=== PATIENT | female | born 1975 | race Caucasian/White ===

== ENCOUNTER → 2019-11-03 14:10 | Outpatient (BNVA) | payer BC, OTHER, SELFPAY | PROVIDERS: Family Provider Urology; PCP Internal Medicine; Visit Provider Urology | DX: N30.20 Other chronic cystitis without hematuria (principal) | CPT/HCPCS: 81001 ==

== ENCOUNTER → 2020-07-27 08:33 | Outpatient (BNVA) | payer BC, OTHER, SELFPAY | PROVIDERS: Family Provider Urology; PCP Nurse Practitioner Family; Visit Provider Urology | DX: N30.20 Other chronic cystitis without hematuria (principal) | CPT/HCPCS: 81003 ==

== ENCOUNTER → 2021-01-25 08:35 | Outpatient (BNVA) | payer OTHER, SELFPAY | PROVIDERS: Family Provider Urology; PCP Nurse Practitioner Family; Visit Provider Urology | DX: N30.20 Other chronic cystitis without hematuria (principal) | CPT/HCPCS: 81003 ==

== ENCOUNTER 2021-05-09 09:25 | Emergency (ER) | payer OTHER, SELFPAY ==
[2021-05-09 09:41] VITALS: BP 141/83; PULSE 87; RESP 16; TEMP 36.8; O2SAT 99; BMI 22.4
--- NOTE | 2021-05-09 10:04 | XR_ITS ---
WS: [id number] Portable AP upright chest, 05/09/2021 Clinical Data: chest pain Comparison: None. Findings: No nodules, masses or effusions are seen. The heart is normal. The pulmonary vascularity is not increased. No pneumonia or pneumothorax is seen. XR/XR chest 1V portable [id number] Impression: Negative chest.
--- NOTE | 2021-05-09 10:05 | ECG_ITS ---
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 Measurements Intervals [place] Rate: 65 P: 71 SC: 132 QRS: 69 QRSD: 86 T: 41 QT: 380 QTc: 397 Interpretive Statements SINUS RHYTHM No previous ECG available for comparison Electronically Signed On 05-11-2021 18:20:50 CDT by Shahrzad Frey M.D. [id number]
--- NOTE | 2021-05-09 10:14 | W.ED.GENADLT ---
HPI - General Adult General: Chief complaint: General Medical Stated complaint: indigestion pain, HTN Time Seen by Provider: 05/09/21 09:28 History of Present Illness: HPI narrative: 46-year-old female comes in complaining of epigastric discomfort radiating into her chest. She has been taking her 's pantoprazole and omeprazole which seemed to help some. Her blood pressures also been elevated. She went to a local walk-in clinic and was referred here because of the component of chest pain. She has no personal or family history of coronary artery disease. She is not diabetic and she is not a smoker. No previous cardiac evaluation. Onset (ago): day(s) Location: chest Radiation: non-radiation Severity: mild Quality: aching Pain Consistency: intermittent Relieving factors: other (Antacids) Exacerbating factors: none Associated symptoms: Reports chest pain and nausea; Deny confusion, cough, diaphoresis, decreased appetite, dyspnea, fevers/chills, headache(s), malaise, rash, palpitations, seizures, short of breath, syncope, vomiting or weakness Treatments prior to arrival: none Review of Systems Const: Denies: malaise or diaphoresis ENMT: Denies: throat pain, ear or mastoid pain, nasal discharge or nasal congestion Card: Reports: chest pain; Denies: palpitations or syncope Resp: Denies: dyspnea GI: Reports: nausea; Denies: vomiting : Denies: flank pain, difficulty voiding, dysuria, urinary frequency or urinary urgency Skin/Breast: Denies: rash Neuro: Denies: headache(s) or confusion PFS ED PFSH: Medical History Chronic cystitis Vaginitis due to [place] Surgical History Hx of dilation and curettage Family History Other Alcoholism Cancer Social History Smoking and tobacco status: never smoked Alcohol intake: current Adopted: No Caregiver/support person: No Lives independently: No Household members: spouse Marital status: Current occupational status: employed History of recent travel: No Physical Exam Const: COMMON NORMALS: no acute distress GENERAL APPEARANCE: cooperative and comfortable ORIENTATION/CONSCIOUSNESS: Yes awake, Yes oriented to person, Yes oriented to place and Yes oriented to time HENMT: COMMON NORMALS: normocephalic, atraumatic, hearing grossly normal bilaterally and external ears normal HEAD & SCALP: normocephalic and atraumatic EXTERNAL EAR: Yes external ears normal Eye: COMMON NORMALS: Equal, round and reactive pupils present, EOMs intact bilaterally, conjunctivae normal and no scleral icterus CONJUNCTIVA: Yes conjunctivae normal PUPIL: Yes Equal, round and reactive pupils present Neck/C-Spine: COMMON NORMALS: full ROM, no lymphadenopathy, supple and no JVD Lymph: LYMPHATIC: no lymphadenopathy noted and no lymphedema noted Resp: COMMON NORMALS: normal respiratory effort, No retractions, No use of accessory muscles and clear to auscultation bilaterally AUSCULTATION: clear to auscultation bilaterally Cardio: COMMON NORMALS: no JVD, regular rate, regular rhythm and No murmurs present (Cardio) RATE: regular rate RHYTHM: regular rhythm GI: COMMON NORMALS: Soft to palpation and No hepatosplenomegaly present AUSCULTATION: Yes normoactive bowel sounds PALPATION: Yes Soft to palpation, No Tenderness to palpation present (GI), No Guarding due to palpation present (GI) and Yes No hepatosplenomegaly present Extremity: COMMON NORMALS: normal to inspection, capillary refill normal, no clubbing, cyanosis or edema, no calf tenderness and no pedal edema Neuro: SENSORIUM/ORIENTATION: Yes oriented to person, Yes oriented to place and Yes oriented to time Skin: COMMON NORMALS: no rashes or lesions noted GENERAL SKIN EXAM: no rashes or lesions noted Course Vital Signs: Vital signs: Vital Signs Temperature 98.2 F 05/09/21 09:41 Pulse Rate 82 05/09/21 14:23 Respiratory Rate 14 05/09/21 14:23 Blood Pressure 128/71 05/09/21 14:23 Pulse Oximetry 98 05/09/21 14:23 MDM - General Adult MDM Narrative: Medical decision making narrative: Second troponin is negative patient had improvement with GI cocktail. Discharge home on Protonix. Reviewed labs and EKGs and imaging in the chart. Blood pressure is improved we did not do anything for that asked her to follow-up with her primary care doctor is no worsening or change symptoms she can return. Lab Data: Labs: Lab Results 05/09/21 05/09/21 05/09/21 Range/Units 10:25 10:25 10:25 WBC 8.1 (4.0-10.0) 10^3/ uL RBC 4.60 (4.1-5.3) 10^6/u L Hgb 14.2 (11.5-15.3) g/dL Hct 42.5 (37.0-47.0) % MCV 92.4 (81-99) fl MCH 30.9 (28.0-34.0) pg MCHC 33.4 (30.0-36.0) g/dL RDW 11.8 L (12.1-15.1) % Plt Count 313 (130-400) 10^3/c mm MPV 9.3 (7.4-10.4) fL Neut % (Auto) 68.7 % Lymph % (Auto) 17.5 % Braxton % (Auto) 6.3 % Eos % (Auto) 6.8 % Baso % (Auto) 0.5 % Neut # (Auto) 5.57 (1.8-7.7) 10^3/u L Lymph # (Auto) 1.4 (0.8-4.8) 10^3/u L Braxton # (Auto) 0.5 (0.2-0.9) 10^3/u L Eos # (Auto) 0.6 (0.0-0.8) 10^3/u L Baso # (Auto) 0.0 (0.0-0.1) 10^3/u L Nucleated RBC % (a uto) 0 % Nucleated RBCs # 0.0 /100WBC Sodium 141 (136-145) mmol/L Potassium 3.7 (3.5-5.1) mmol/L Chloride 106 (98-107) mmol/L Carbon Dioxide 25 (22-29) mmol/L Anion Gap 13.7 (5-19) BUN 9 (6-20) mg/dL Creatinine 0.8 (0.5-0.9) mg/dL GFR Calculation 76.9 L (90-130) mL/min Glucose 89 (65-115) mg/dL Calculated Osmolal ity 290 (285-295) mOsm/k g Calcium 8.9 (8.5-10.5) mg/dL Total Bilirubin 0.7 (0.15-1.2) mg/dL AST 24 (0-32) U/L ALT 14 (0-33) U/L Alkaline Phosphata se 78 (35-105) IU/L Troponin T Baselin e 6 (0-10) ng/L Troponin T 120 Min [place] (0-10) ng/L Delta Troponin T (0-10) ABS# Total Protein 6.7 (6.6-8.7) g/dL Albumin 4.4 (3.5-5.2) g/dL Globulin 2.3 (1.3-4.6) g/dL Urine Color (Yellow) Urine Appearance (CLEAR) Urine pH (5-7) Ur Specific Gravit y (1.005-1.030) Urine Protein (Negative) Urine Glucose (UA) (Normal) Urine Ketones (Negative) Urine Blood (Negative) Urine Nitrate (Negative) Urine Bilirubin (Negative) Urine Urobilinogen (Negative) mg/dL Ur Leukocyte Lyn ase (Negative) 05/09/21 05/09/21 Range/Units 11:18 13:06 WBC (4.0-10.0) 10^3/ uL RBC (4.1-5.3) 10^6/u L Hgb (11.5-15.3) g/dL Hct (37.0-47.0) % MCV (81-99) fl MCH (28.0-34.0) pg MCHC (30.0-36.0) g/dL RDW (12.1-15.1) % Plt Count (130-400) 10^3/c mm MPV (7.4-10.4) fL Neut % (Auto) % Lymph % (Auto) % Braxton % (Auto) % Eos % (Auto) % Baso % (Auto) % Neut # (Auto) (1.8-7.7) 10^3/u L Lymph # (Auto) (0.8-4.8) 10^3/u L Braxton # (Auto) (0.2-0.9) 10^3/u L Eos # (Auto) (0.0-0.8) 10^3/u L Baso # (Auto) (0.0-0.1) 10^3/u L Nucleated RBC % (a uto) % Nucleated RBCs # /100WBC Sodium (136-145) mmol/L Potassium (3.5-5.1) mmol/L Chloride (98-107) mmol/L Carbon Dioxide (22-29) mmol/L Anion Gap (5-19) BUN (6-20) mg/dL Creatinine (0.5-0.9) mg/dL GFR Calculation (90-130) mL/min Glucose (65-115) mg/dL Calculated Osmolal ity (285-295) mOsm/k g Calcium (8.5-10.5) mg/dL Total Bilirubin (0.15-1.2) mg/dL AST (0-32) U/L ALT (0-33) U/L Alkaline Phosphata se (35-105) IU/L Troponin T Baselin e (0-10) ng/L Troponin T 120 Min [place] 6.00 (0-10) ng/L Delta Troponin T 0 (0-10) ABS# Total Protein (6.6-8.7) g/dL Albumin (3.5-5.2) g/dL Globulin (1.3-4.6) g/dL Urine Color Yellow (Yellow) Urine Appearance Clear (CLEAR) Urine pH 7 (5-7) Ur Specific Gravit y 1.005 (1.005-1.030) Urine Protein Neg (Negative) Urine Glucose (UA) Norm (Normal) Urine Ketones Negative (Negative) Urine Blood Neg (Negative) Urine Nitrate Negative (Negative) Urine Bilirubin Neg (Negative) Urine Urobilinogen Norm (Negative) mg/dL Ur Leukocyte Lyn ase Negative (Negative) Discharge Plan Discharge Patient Disposition: Home Clinical Impression: Chest pain due to gastrointestinal reflux disease Condition: Stable Prescriptions: New Protonix 40 mg tablet,delayed release (DR/EC) 40 mg PO DAILY Qty: 30 RF: 0 No Action ascorbic acid (vitamin C) 100 mg tablet 100 mg PO DAILY RF: 0 Lo Loestrin Fe 1 mg-10 mcg (24)/10 mcg (2) tablet 1 tab PO BEDTIME RF: 0 Probiotic 3 billion cell capsule 3,000 mmu cells PO DAILY RF: 0 omeprazole 20 mg capsule,delayed release(DR/EC) 20 mg PO DAILY RF: 0 calcium carbonate-vitamin D3 [Calcium 500 With D] 500 mg(1,250mg) -400 unit tablet 1 tab PO BEDTIME RF: 0 loratadine 10 mg Tablet 10 mg PO DAILY PRN (Reason: Allergy Symptoms) RF: 0 Discharge Orders: Discharge ED (Routine); Ordered 05/09/21 Ordered By: Efra Osorio Referrals: Edith Andrew FNP [Primary Care Provider] - Patient Instructions: Opioid Safety Coding Level of Care Code 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
[2021-05-09] MEDS: lidocaine 2% viscous 15 ML, aluminum-mag hydrox-simethicon 30 ML, sucralfate oral liq 1 GM PO (10:30)
[2021-05-09 10:54] LABS: Basophils % 0.5 %; Eosinophils # 0.6 10^3/uL (0.0-0.8); Eosinophils % 6.8 %; Hematocrit 42.5 % (37.0-47.0); Hemoglobin 14.2 g/dL (11.5-15.3); Lymphocytes # 1.4 10^3/uL (0.8-4.8); Lymphocytes % 17.5 %; Mean Corpuscular HGB Conc 33.4 g/dL (30.0-36.0); Mean Corpuscular Hemoglobin 30.9 pg (28.0-34.0); Mean Corpuscular Volume 92.4 fl (81-99); Mean Platelet Volume 9.3 fL (7.4-10.4); Monocytes # 0.5 10^3/uL (0.2-0.9); Monocytes % 6.3 %; Neutrophils # 5.57 10^3/uL (1.8-7.7); Neutrophils % 68.7 %; Nucleated Red Blood Cells % 0 %; Platelet Count 313 10^3/cmm (130-400); Red Cell Distribution Width 11.8 % (12.1-15.1); White Blood Count 8.1 10^3/uL (4.0-10.0)
[2021-05-09 11:07] LABS: Alanine Aminotransferase 14 U/L (0-33); Albumin Level 4.4 g/dL (3.5-5.2); Alkaline Phosphatase 78 IU/L (35-105); Anion Gap 13.7 (5-19); Aspartate Amino Transferase 24 U/L (0-32); Blood Urea Nitrogen 9 mg/dL (6-20); Calcium 8.9 mg/dL (8.5-10.5); Carbon Dioxide 25 mmol/L (22-29); Chloride 106 mmol/L (98-107); Globulin 2.3 g/dL (1.3-4.6); Glomerular Filtration Rate 76.9 mL/min (90-130); Glucose 89 mg/dL (65-115); Osmolality Calculated 290 mOsm/kg (285-295); Potassium 3.7 mmol/L (3.5-5.1); Sodium 141 mmol/L (136-145); Total Bilirubin 0.7 mg/dL (0.15-1.2); Total Protein 6.7 g/dL (6.6-8.7)
[2021-05-09 11:10] LABS: Troponin(5th) Baseline 6 ng/L (0-10)
[2021-05-09 11:25] LABS: Add Urine Microscopic? NO; Charge for UA Resulting for Rev
[2021-05-09 11:34] LABS: Urine Appearance Clear (CLEAR); Urine Color Yellow (Yellow)
[2021-05-09 11:35] LABS: Bilirubin Urine Neg (Negative); Blood Urine Neg (Negative); Glucose Urine UA Norm (Normal); Ketones Urine Negative (Negative); Leukocyte Esterase Urine Negative (Negative); Nitrate Urine Negative (Negative); Protein Urine Neg (Negative); Specific Gravity, Urine 1.005 (1.005-1.030); Urobilinogen Urine Norm (Negative); pH Urine 7 (5-7)
[2021-05-09 13:35] LABS: Troponin 5 2HR Delta 0 ABS# (0-10)
[2021-05-09 14:23] VITALS: BP 128/71; PULSE 82; RESP 14; O2SAT 98
== END 2021-05-09 14:24 | disposition home or self-care (01) ==
PROVIDERS: Emergency Provider Family Medicine; PCP Nurse Practitioner Family
DX: K21.9 Gastro-esophageal reflux disease without esophagitis (principal)
CPT/HCPCS: 71045; 80053; 81003; 84484; 85025; 93005; 99283

== ENCOUNTER 2021-08-23 11:58 | Outpatient (CLI) | payer OTHER, SELFPAY ==
--- NOTE | 2021-08-23 19:49 | ONC CON_ITS ---
Dr. Garibay New Patient Note Patient: Milena Underwood Unit #: [id number]: 1975 Dicatated By: William Garibay M.D.Date of Visit: Aug 23, 2021 Onc MED New Patient/Consult Referring Physician: WERO COLES, F.N.P. Chief Complaint: Factor V Leiden mutation. History of Present Illness: This is a 46-year-old woman who was recently found to have heterozygosity for the factor V Leiden mutation. She has been in good general health. She has an older half sister who had blood clots sometime in her 50s. Patient has no additional information about the circumstances surrounding the blood clot or the treatment she received, but she apparently was found to have the factor Leiden mutation. Having been informed of that, the patient was then tested, and that study showed heterozygosity for the factor V Leiden (R506Q) variant. The patient herself has no history of thromboembolism and she is not aware of any other family members with thromboembolism. She has been feeling good generally. She has normal energy and activity tolerance. ECOG score is 0. Her appetite has been good. She has no fever, night sweats, or hot flashes. She has had recurrent sinus infections, and she currently is on antibiotic therapy with Augmentin. She does not complain of cough, she has not been having shortness of breath or chest pain. She occasionally has fluttering/palpitations, but just briefly. Her acid reflux is adequately managed with pantoprazole. She has no complaints with bowel function. In the past she had seen Dr. Jansen for recurrent urinary tract infection, which she has not had any problems with that recently and she currently has no bladder symptoms. She is on Loestrin for control. She says her knees sometimes pop, she has no significant joint or bone pain. She has occasional sinus headache. She has no focal neurologic symptoms. She sometimes has anxiety. Past Medical History: Her medical history includes gastroesophageal reflux disease and seasonal allergies. Past Surgical History: Her only surgery was a D&C for a blighted ovum in 2005. Medications: C 1000 1 Tablet (of 1000 mg) Oral daily, Calcium + D 1 Tablet Oral daily, D3 High Potency 1 Tablet (of 50 mcg ) Capsule Oral daily, Lo Loestrin Fe 1 Tablet (of 1 mg-10 mcg / ) Oral daily, Multi Adult Gummies 2 Tablet Tablet, chewable Oral daily, Probiotic 1 Capsule Oral daily, Protonix 1 Tablet (of 40 mg) Tablet, enteric coated Oral daily, ZyrTEC Allergy 1 Tablet (of 10 mg) Oral daily Allergies: No Known Allergies. Social History: Ms. Underwood is . 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 She smoked for a short time as a teenager. She quit by age 19. She has moderate alcohol use, reported at 5 ounces of red wine daily and 2-4 light beers per day. Family History: Her mother in her late 70s with lung cancer. She also had dementia. Father is still living at age 84. He has non-Hodgkin lymphoma and myelodysplastic syndrome. He also has congestive heart failure. She has one full sibling, a 53-year-old sister who is in good health. And older half-sister, with whom she shares a common father, had a blood clot sometime in her 50s, and she was found to have the factor V Leiden mutation. Her only other sibling is an adopted brother. She has 3 children, all in good health. She is not aware of any other history of thromboembolism in the family. Review Of Symptoms: Constitutional - She feels good generally. She has good energy and activity tolerance. Appetite is good and weight is stable. No fever, night sweats, or hot flashes. ECOG score is 0, Eyes - No change in vision, ENMT - No hearing loss or tinnitus. She has had recurrent sinus infections. No mouth sores. No sore throat or difficulty swallowing, Hematologic/Lymphatic - She has had easy bruising. No other bleeding. No history of thrombosis, Respiratory - No shortness of breath. No cough. No pleuritic pain or hemoptysis, Cardiovascular - No angina pain. She has occasional fluttering/palpitations, Gastrointestinal - She has had some nausea with her antibiotic (Augmentin). Her acid reflux is adequately managed with pantoprazole. No diarrhea or constipation. No blood in the stool or black stools, Genitourinary (F) - She has seen Dr. Jansen for recurrent urinary tract infections. She currently has no dysuria or hematuria and no urinary frequency. No urgency or incontinence, Musculoskeletal - She says her knees sometimes pop. She has no significant joint or bone pain, Integumentary - No skin rash or other skin changes, Neurologic - She has occasional sinus headache. No dizziness. No numbness or tingling. No other focal neurologic symptoms, Psychiatric - She sometimes has anxiety. No depression. No insomnia. Vital Signs: Performed on Aug 23, 2021 13:33: 2, 0, 23.21, 1.66 sq.m, 64 in, 98 %, 75 /min, 16 /min, 126/80 mm(hg), 99.0 F (HIGH), and 135.2 lbs (HIGH). Physical Examination: Constitutional - She appears to be in good general health, Eyes - Sclerae nonicteric. Conjunctivae clear, ENMT - No lesions noted in the oral cavity, Neck - No mass or thyromegaly, Hematologic/Lymphatic - No cervical, clavicular, or axillary adenopathy, Respiratory - Lungs are clear with good air movement bilaterally, Cardiovascular - Heart rhythm is regular. There is no murmur, gallop, or rub noted, Abdomen - Soft and non-tender. Liver and spleen are not enlarged. There is no abdominal mass or ascites noted and there is no inguinal adenopathy, Back/Spine - No spine or CVA tenderness noted, Extremities - No edema. Pedal pulses are palpable bilaterally, Integumentary - No rashes. No suspicious skin lesions noted, Neurologic - No focal neurologic deficits noted. Problem List: 1. Heterozygosity for the factor V Leiden mutation (R506Q variant). 2. GERD. 3. Seasonal allergies. Problems Addressed with this Encounter and Plan: Patient with heterozygosity for the factor V Leiden mutation (R506Q variant). She has no personal history of thromboembolism, but a half-sister who was diagnosed with a blood clot in her 50s was determined to have factor V Leiden mutation. We discussed the fact that the factor V Leiden mutation can be associated with thrombophilia and that it may increase the risk of thromboembolism, but many individuals who carry the mutation have no associated thrombosis. We also discussed the fact that the only therapeutic implication of the mutation is that it would be an indication for long-term rather than short-term anticoagulation if she were to have a blood clot. In her situation, having no personal history of thrombosis, the clinical significance of the finding is uncertain. However, as she could potentially be at an increased risk of thrombosis she is recommended to avoid oral contraceptives and/or hormone replacement therapy, and she already is planning to get off of the Loestrin. She is also recommended to stop more frequently during long car trips. There is no indication, though, for prophylactic anticoagulation or other treatment. Given the uncertainty of the clinical significance, I advised against testing her children without a specific indication to do so. She also inquired about getting a COVID-19 booster. She had previously been given the Jose & Jose vaccine. She had no adverse effects, but as a precaution I recommended either the Viralytics or the Hapara product as an alternative. I will plan to see her again as needed. Signed By: William Garibay M.D. <<Signature on File>>
== END 2021-08-23 11:59 | disposition home or self-care (01) ==
PROVIDERS: PCP Nurse Practitioner Family; Visit Provider Internal Medicine Medical Oncology
DX: D68.51 Activated protein C resistance (principal); K21.9 Gastro-esophageal reflux disease without esophagitis; J30.9 Allergic rhinitis, unspecified; Z79.899 Other long term (current) drug therapy
CPT/HCPCS: 99204

== ENCOUNTER → 2021-10-23 14:18 | Outpatient (BNVA) | payer OTHER, SELFPAY | PROVIDERS: PCP Nurse Practitioner Family; Visit Provider Nurse Practitioner Family | DX: N30.20 Other chronic cystitis without hematuria (principal) | CPT/HCPCS: 81003 ==

== ENCOUNTER 2022-02-12 19:26 | Emergency (ER) | payer OTHER, SELFPAY ==
[2022-02-12] VITALS (7 sets, daily range): BP systolic 107–144; BP diastolic 58–88; PULSE 57–105; RESP 13–24; TEMP 36.4; O2SAT 96–100; BMI 23.1
--- NOTE | 2022-02-12 19:28 | XRR_ITS ---
PROCEDURE INFORMATION: Exam: XR Chest Exam date and time: 02/12/2022 7:56 PM Age: 46 years old Clinical indication: Chest wall pain; Additional info: Cp TECHNIQUE: Imaging protocol: XR of the chest. Views: 1 view. COMPARISON: CR XR chest 1V portable [id number] 05/09/2021 10:06 AM FINDINGS: Lungs: Unremarkable. No consolidation. Pleural spaces: Unremarkable. No pleural effusion. No pneumothorax. Heart/Mediastinum: Unremarkable. No cardiomegaly. Bones/joints: Unremarkable. XR/XR chest 1V portable [id number] IMPRESSION: No acute findings.
--- NOTE | 2022-02-12 19:28 | ECG_ITS ---
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 Measurements Intervals [place] Rate: 51 P: 89 ME: 143 QRS: 86 QRSD: 87 T: 74 QT: 415 QTc: 385 Interpretive Statements SINUS BRADYCARDIA Compared to ECG 02/12/2022 19:41:28 Sinus rhythm no longer present ST (T wave) deviation no longer present Electronically Signed On 02-13-2022 21:59:25 CDT by Shahrzad Frey M.D. [id number]
--- NOTE | 2022-02-12 19:48 | W.ED.GENADLT ---
HPI - General Adult General: Chief complaint: Chest Pain Stated complaint: high blood pressure, cp Time Seen by Provider: 02/12/22 19:36 History of Present Illness: CC: Chest Pain HPI: This is a 46 yo patient hx of first degree family members with cardiac diseases presenting to the ED complaining of acute sudden onset intermittent achy chest pain with associated palptiations. She tells me that she began experiencing palpitations 3 days ago and since having palpitations she also has intermittent chest pressure and arm numbness. Patient reports that physical activity improves the chest pressure. Chest pressure wakes her up in the middle of the night. No associated with shortness of breath, chest pain or dyspnea on exertion. Pain is not tearing in nature and does not radiate to the back. Pain not associated with vomiting or PO intake. Denies any recent sympathomimetic drug use. Patient denies any cough. Denies palpitations, dysphagia, diaphoresis, radiation of pain to bilateral arms, jaw. Denies F/N/V/D. Patient denies any recent immobility, surgery, unilateral leg swelling, or prior PE. Patient denies any orthopnea. Onset: 3 days ago Duration: ongoing for the last 3 days Location: home Severity: mild/moderate Associated symptoms: Reports chest pain and palpitations; Deny dyspnea, nausea, rash or vomiting Review of Systems Const: Denies: fever(s) or chills Eyes: Denies: change in vision ENMT: Denies: mouth pain Card: Reports: chest pain and palpitations Resp: Denies: dyspnea or non-productive cough GI: Denies: abdominal pain, nausea, vomiting or diarrhea : Denies: dysuria Musc: Denies: extremity pain Skin/Breast: Denies: rash or new lesions Neuro: Denies: weakness in extremities Psych: Reports: other (Normal mood) Yoni/Lymph: Denies: easy bruising PFSH ED PFSH: Medical History Chronic cystitis Vaginitis due to [place] Surgical History Hx of dilation and curettage Family History Father , AT AGE 85 Non Hodgkin's lymphoma Mother , AT AGE 72 Cancer LUNG Dementia Other Alcoholism Social History Smoking and tobacco status: never smoked Alcohol intake: current Alcohol intake frequency: holidays/special occasions only Adopted: No Caregiver/support person: No Lives independently: No Household members: spouse Marital status: Current occupational status: employed History of recent travel: No Physical Exam Const: COMMON NORMALS: alert HENMT: COMMON NORMALS: atraumatic HEAD & SCALP: atraumatic MOUTH: moist mucous membranes not abnormal Eye: COMMON NORMALS: EOMs intact bilaterally and conjunctivae normal CONJUNCTIVA: Yes conjunctivae normal Neck/C-Spine: COMMON NORMALS: full ROM and supple Resp: COMMON NORMALS: normal respiratory effort and clear to auscultation bilaterally AUSCULTATION: clear to auscultation bilaterally Cardio: COMMON NORMALS: regular rate RATE: regular rate OTHER: 2+ radial pulses b/l GI: COMMON NORMALS: Soft to palpation and non-tender PALPATION: Yes Soft to palpation Extremity: COMMON NORMALS: full ROM Neuro: SENSORIUM/ORIENTATION: Yes alert MOTOR EXAM: No Abnormal motor strength present and Other motor observations present (no focal motor deficits) Psych: COMMON NORMALS: speech normal SPEECH: Yes normal speech MOOD & AFFECT: Yes euthymic mood Course Vital Signs: Vital signs: Vital Signs Temperature 97.5 F L 02/12/22 19:33 Pulse Rate 57 L 02/12/22 21:35 Respiratory Rate 16 02/12/22 21:35 Blood Pressure 129/58 02/12/22 21:35 Pulse Oximetry 97 02/12/22 21:35 MDM - General Adult Medical Decision Making [46]yo patient w/ hx of family hx of cardiac diseases presenting to the ED with evaluation of new onset of achy chest pain lasting for a few minutes at a time x 3 days with palpitations. HDS, pulse 2+ radially bilaterally, no signs of fluid overload, AAOx3, neuro exam intact. Given History and Exam today I have no suspicion for ACS, Pneumothorax, Pneumonia, Pulmonary Embolus, Tamponade, Aortic Dissection or other emergent problems as a cause for this presentation. Workup: ECG x 2, CXR, CBC, BMP, Troponin x 2 Interventions: Tylenol 500mg Findings: ECG: No overt evidence of STEMI, hyperacute T waves, localizable STD or T wave inversions. No evidence of Brugada?s sign, delta wave, epsilon wave, significantly prolonged QTc, or malignant arrhythmia. No Q waves. Other Labs unremarkable for emergent problems. CXR: Without PTX, PNA, or widened mediastinum Last Stress Test: never Last Heart Catheterization: never HEART Score: 0 PERC: Negative [10:30pm] On reassessment, the patient is HDS, no complaints of persistent chest pain in the ED after evaluation. ECG is non-ischemic. Workup today is unremarkable. Doubt ACS/PE or other emergent causes of chest pain. Doubt ACS/PE or other emergent causes of chest pain. No suspicion for aortic dissection given no widened mediastinum, 2+ upper extremity pulses, or tearing pain. No suspicion for PE given no pleuritic chest pain, recent immobilization or surgery hemoptysis, or other VTE risk factors. EKG is non-ischemic. XR normal. I have given patient follow up with our adult protective caseworker to be seen by our outpatient Cardiology for chest pain evaluation given family hx of chest pain. Patient aware of a call from our adult protective caseworker to schedule for appointment(s) and verbalizes understanding of the importance of following up. Rx: Tylenol 500mg Q6Hrs x 4 days PRN pain Disposition: Discharge. Strict return precautions discussed with the patient with full understanding. Advised patient to follow up promptly with a primary care provider in 24-48 hrs if the patient has persistent symptoms. Given return instructions for any crushing/tearing chest pain, focal weakness, syncope or any new or concerning issues. Lab Data : 02/12/22 19:45 02/12/22 19:45 Radiology Impressions Chest X-Ray 02/12/22 19:28 IMPRESSION: No acute findings. Laboratory Results WBC 9.3 10^3/uL (4.0-10.0) 02/12/22 19:45 RBC 4.46 10^6/uL (4.1-5.3) 02/12/22 19:45 Hgb 14.3 g/dL (11.5-15.3) 02/12/22 19:45 Hct 41.7 % (37.0-47.0) 02/12/22 19:45 MCV 93.5 fl (81-99) 02/12/22 19:45 MCH 32.1 pg (28.0-34.0) 02/12/22 19:45 MCHC 34.3 g/dL (30.0-36.0) 02/12/22 19:45 RDW 11.7 % (12.1-15.1) L 02/12/22 19:45 Plt Count 297 10^3/cmm (130-400) 02/12/22 19:45 MPV 9.4 fL (7.4-10.4) 02/12/22 19:45 Neut % (Auto) 56.7 % 02/12/22 19:45 Lymph % (Auto) 28.3 % 02/12/22 19:45 [place] % (Auto) 8.7 % 02/12/22 19:45 Eos % (Auto) 5.6 % 02/12/22 19:45 Baso % (Auto) 0.5 % 02/12/22 19:45 Neut # (Auto) 5.30 10^3/uL (1.8-7.7) 02/12/22 19:45 Lymph # (Auto) 2.6 10^3/uL (0.8-4.8) 02/12/22 19:45 [place] # (Auto) 0.8 10^3/uL (0.2-0.9) 02/12/22 19:45 Eos # (Auto) 0.5 10^3/uL (0.0-0.8) 02/12/22 19:45 Baso # (Auto) 0.1 10^3/uL (0.0-0.1) 02/12/22 19:45 Nucleated RBC % (auto) 0 % 02/12/22 19:45 Nucleated RBCs # 0.0 /100WBC 02/12/22 19:45 Sodium 137 mmol/L (136-145) 02/12/22 19:45 Potassium 3.7 mmol/L (3.5-5.1) 02/12/22 19:45 Chloride 99 mmol/L (98-107) 02/12/22 19:45 Carbon Dioxide 25 mmol/L (22-29) 02/12/22 19:45 Anion Gap 16.7 (5-19) 02/12/22 19:45 BUN 8 mg/dL (6-20) 02/12/22 19:45 Creatinine 0.8 mg/dL (0.5-0.9) 02/12/22 19:45 GFR Calculation 76.9 mL/min (90-130) L 02/12/22 19:45 Glucose 115 mg/dL (65-115) 02/12/22 19:45 Calculated Osmolality 283 mOsm/kg (285-295) L 02/12/22 19:45 Calcium 9.3 mg/dL (8.5-10.5) 02/12/22 19:45 Magnesium 1.7 mg/dL (1.7-2.3) 02/12/22 19:45 Total Bilirubin 0.6 mg/dL (0.15-1.2) 02/12/22 19:45 AST 23 U/L (0-32) 02/12/22 19:45 ALT 17 U/L (0-33) 02/12/22 19:45 Alkaline Phosphatase 69 IU/L (35-105) 02/12/22 19:45 Troponin T Baseline 6 ng/L (0-10) 02/12/22 19:45 Troponin T 120 Minute 6.69 ng/L (0-10) 02/12/22 21:55 Total Protein 7.1 g/dL (6.6-8.7) 02/12/22 19:45 Albumin 4.5 g/dL (3.5-5.2) 02/12/22 19:45 Globulin 2.6 g/dL (1.3-4.6) 02/12/22 19:45 Discharge Plan Discharge Patient Disposition: Home Clinical Impression: Chest pain Condition: Stable Prescriptions: New acetaminophen 500 mg tablet 500 mg PO Q6H PRN (Reason: pain) 5 Days Qty: 20 0RF No Action ascorbic acid (vitamin C) 100 mg tablet 100 mg PO DAILY 0RF Lo Loestrin Fe 1 mg-10 mcg (24)/10 mcg (2) tablet 1 tab PO BEDTIME 0RF Probiotic 3 billion cell capsule 3,000 mmu cells PO DAILY 0RF calcium carbonate-vitamin D3 [Calcium 500 With D] 500 mg(1,250mg) -400 unit tablet 1 tab PO BEDTIME 0RF cholecalciferol (vitamin D3) 10 mcg (400 unit) capsule 10 mcg PO DAILY 0RF pantoprazole [Protonix] 40 mg tablet,delayed release (DR/EC) 40 mg PO DAILY Qty: 30 0RF Zyrtec 10 mg Capsule 10 mg PO DAILY 0RF Discharge Orders: Discharge ED (Routine); Ordered 02/12/22 Ordered By: Seamus Araujo Referrals: Edith Andrew FNP [Primary Care Provider] - Discharge Diet: Advance as tolerated Discharge Activity: Increase activity as tolerated Patient Instructions: Chest Pain (ED) Activity Restrictions/Additional Instructions: Come back to the emergency room if your chest pain worsens, have any fever or chills, worsening shortness of breath, worsening exertional lightheadedness, or any new or concerning complaints. Our adult protective caseworker will have you follow-up with Cardiology in the next few days. You would be expected to have a phone call with our adult protective caseworker who will put you on the schedule. You can expect a call from us in the next 2-3 days. If you don't hear from us, call us back in the emergency room at [phone]. 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
[2022-02-12 19:55] LABS: Basophils # 0.1 10^3/uL (0.0-0.1); Basophils % 0.5 %; Eosinophils # 0.5 10^3/uL (0.0-0.8); Eosinophils % 5.6 %; Hematocrit 41.7 % (37.0-47.0); Hemoglobin 14.3 g/dL (11.5-15.3); Lymphocytes # 2.6 10^3/uL (0.8-4.8); Lymphocytes % 28.3 %; Mean Corpuscular HGB Conc 34.3 g/dL (30.0-36.0); Mean Corpuscular Hemoglobin 32.1 pg (28.0-34.0); Mean Corpuscular Volume 93.5 fl (81-99); Mean Platelet Volume 9.4 fL (7.4-10.4); Monocytes # 0.8 10^3/uL (0.2-0.9); Monocytes % 8.7 %; Neutrophils % 56.7 %; Nucleated Red Blood Cells % 0 %; Platelet Count 297 10^3/cmm (130-400); Red Blood Count 4.46 10^6/uL (4.1-5.3); Red Cell Distribution Width 11.7 % (12.1-15.1); White Blood Count 9.3 10^3/uL (4.0-10.0)
[2022-02-12 20:13] LABS: Alanine Aminotransferase 17 U/L (0-33); Albumin Level 4.5 g/dL (3.5-5.2); Alkaline Phosphatase 69 IU/L (35-105); Anion Gap 16.7 (5-19); Aspartate Amino Transferase 23 U/L (0-32); Blood Urea Nitrogen 8 mg/dL (6-20); Calcium 9.3 mg/dL (8.5-10.5); Carbon Dioxide 25 mmol/L (22-29); Chloride 99 mmol/L (98-107); Creatinine Clr Calc Pharmacy 78.6575; Globulin 2.6 g/dL (1.3-4.6); Glomerular Filtration Rate 76.9 mL/min (90-130); Glucose 115 mg/dL (65-115); Osmolality Calculated 283 mOsm/kg (285-295); Potassium 3.7 mmol/L (3.5-5.1); Sodium 137 mmol/L (136-145); Total Bilirubin 0.6 mg/dL (0.15-1.2); Total Protein 7.1 g/dL (6.6-8.7)
[2022-02-12 20:14] LABS: Troponin(5th) Baseline 6 ng/L (0-10)
[2022-02-12 20:18] LABS: Magnesium 1.7 mg/dL (1.7-2.3)
--- NOTE | 2022-02-12 21:28 | ECG_ITS ---
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 Measurements Intervals [address] Rate: 63 P: 84 GA: 129 QRS: 87 QRSD: 84 T: 81 QT: 380 QTc: 391 Interpretive Statements SINUS RHYTHM MINIMAL ST DEPRESSION [0.025+ mV ST DEPRESSION] Compared to ECG 05/09/2021 10:36:19 ST (T wave) deviation now present Electronically Signed On 02-13-2022 22:11:52 CDT by Shahrzad Frey M.D. [id number]
[2022-02-12 22:20] LABS: Troponin 5 2HR 6.69 ng/L (0-10)
[2022-02-12 22:25] LABS: Troponin 5 2HR Delta 0.69 ABS# (0-10)
--- NOTE | 2022-02-14 10:10 | DCPLANNER ---
Addendum entered by Yandy Cruz 05/15/22 12:09: Patient had a follow up appointment scheduled for 04.11.22 with [facility] - patient did attend appointment. Addendum entered by Yandy Cruz 02/17/22 10:11: Patient has a follow up appointment scheduled for , April 11, 2022 at 2:[address] Casanova at [facility]. Clinic will call patient with appointment information. Original Note: cycle manager had message to schedule a follow up appointment for patient with cardiology. cycle manager sent patients information to the front office staff at [facility]. Patients information will be printed and reviewed. Clinic will call patient with appointment information.
== END 2022-02-12 22:51 | disposition home or self-care (01) ==
PROVIDERS: Emergency Medicine; Emergency Provider Emergency Medicine; PCP Nurse Practitioner Family
DX: R07.9 Chest pain, unspecified (principal)
CPT/HCPCS: 71045; 80053; 83735; 84484; 85025; 93005; 99284

== ENCOUNTER 2022-04-17 13:16 | Outpatient (CLI) | payer OTHER, SELFPAY ==
--- NOTE | 2022-04-17 13:15 | MR_ITS ---
WS: [id number] MRI CERVICAL SPINE NONCONTRAST TECHNIQUE: Sagittal T1, T2 and STIR imaging. Axial T2, gradient, and fiesta imaging. CLINICAL INFORMATION: NUMBNESS AND TINGLING OF BOTH UPPER EXTREMITIES COMPARISON: None. FINDINGS: Straightening of the normal cervical lordosis. Small disc protrusion C6-C7. No high-grade central can al narrowing. Cord signal is normal. C2-C3: Normal. C3-C4: Mild facet arthropathy. Spinal canal and foramen are patent. C4-C5: Spinal canal and foramen are patent. Mild facet arthropathy. C5-C6: Disc osteophytic ridging. Mild facet arthropathy. Mild bilateral bony foraminal narrowing LEFT greater than RIGHT. C6-C7: Disc osteophyte complex with a shallow central protrusion. Slight effacement of ventral thecal sac. Mild LEFT and no significant RIGHT foraminal narrowing. C7-T1: Mild osteophytic ridging. Spinal canal and foramen are patent. Visualized upper thoracic cord is normal. Small retention cysts or polyps partially visualized in the maxillary sinuses larger on the LEFT measuring 6 mm. Visualized brain stem structures: Normal. Prevertebral soft tissues: Normal. MR/MR cervical spin wo con* [id number] IMPRESSION: 1. Straightening of the normal cervical lordosis. Cord signal is normal. 2. Disc osteophyte complex C6-C7 with a shallow central protrusion. Slight eff acement of ventral thecal sac. Mild LEFT foraminal narrowing. 3. Mild disc osteophytic ridging C5-C6 with mild LEFT greater than RIGHT bony foraminal narrowing. 4. Mild facet arthropathy more prominent at C5-C6 and C6-C7.
== END 2022-04-17 13:17 | disposition home or self-care (01) ==
LOC: RAD 13:17
PROVIDERS: PCP Nurse Practitioner Family; Visit Provider Family Medicine
DX: R20.2 Paresthesia of skin (principal); R20.0 Anesthesia of skin; M25.78 Osteophyte, vertebrae; M47.812 Spondylosis without myelopathy or radiculopathy, cervical region
CPT/HCPCS: 72141

== ENCOUNTER → 2022-05-15 14:14 | Outpatient (BNVA) | payer OTHER, SELFPAY | PROVIDERS: PCP Nurse Practitioner Family; Visit Provider Internal Medicine | DX: B88.2 Other arthropod infestations (principal); M54.2 Cervicalgia; R76.8 Other specified abnormal immunological findings in serum | CPT/HCPCS: 73120; 83516; 85651; 86140; 86160; 86162; 86200; 86235; 86255; 86376; 86431; 86704; 86803; 87340 ==

== ENCOUNTER 2022-05-23 06:00 | Outpatient (RCR) | payer OTHER, SELFPAY | END 2022-06-13 23:59 | disposition home or self-care (01) | LOC: SPT 06:00 | PROVIDERS: PCP Nurse Practitioner Family; Visit Provider Physician Assistant | DX: M54.2 Cervicalgia (principal) | CPT/HCPCS: 97110; 97161 ==

== ENCOUNTER 2022-07-01 07:03 | Outpatient (CLI) | payer OTHER, SELFPAY ==
--- NOTE | 2022-07-01 07:00 | USCV_ITS ---
KjMilena Age: 47 Gender: F : 1975 Exam Date: 07/01/2022 07:18 Ordering Phys: Lenny Casanova M.D ([email or web address]) Technologist: Exam Location: [facility] [place] Indication: tach BP: 125 / 73 HR: 69 Rhythm: Sinus Technical Quality: Adequate MEASUREMENTS (Male / Female) Normal Values 2D ECHO LV Diastolic Diameter PLAX 3.8 cm 4.2 - 5.9 / 3.9 - 5.3 cm LV Systolic Diameter PLAX 2.8 cm IVS Diastolic Thickness 1.0 cm 0.6 - 1.0 / 0.6 - 0.9 cm IVS Systolic Thickness 1.1 cm LVPW Diastolic Thickness 1.0 cm 0.6 - 1.0 / 0.6 - 0.9 cm LVPW Systolic Thickness 1.2 cm LVOT Diameter 1.7 cm LV Ejection Fraction 2D Teich 53.5 % LV Ejection Fraction MOD 2C 70.4 % LV Ejection Fraction 2C AL 71.8 % LA Diameter 2.5 cm Aorta at Sinotubular Diameter 1.5 cm IVC Diameter 1.3 cm M-MODE LV Diastolic Diameter MM 4.1 cm 4.2 - 5.9 / 3.9 - 5.3 cm LV Systolic Diameter MM 2.8 cm LV Ejection Fraction MM Teich 61.2 % IVS Diastolic Thickness MM 0.8 cm 0.6 - 1.0 / 0.6 - 0.9 cm IVS Systolic Thickness MM 1.1 cm LVPW Diastolic Thickness MM 1.0 cm 0.6 - 1.0 / 0.6 - 0.9 cm LVPW Systolic Thickness MM 1.3 cm RV Diastolic Diameter MM 1.1 cm Aortic Annulus Diameter 2.9 cm LA Ao Ratio MM 0.9 MV E Point Septal Separation 0.6 cm DOPPLER AV Peak Velocity 125.0 cm/s LVOT Peak Velocity 109.0 cm/s AV Area Cont Eq vti 2.0 cm squared AV Area Cont Eq pk 2.0 cm squared MV Area PHT 5.0 cm squared Mitral E to A Ratio 1.4 MV E' Velocity 57.8 cm/s Mitral E to MV E' Ratio 6.2 Mitral E to LV E' Lateral Ratio 7.1 Mitral E to LV E' Septal Ratio 5.5 TR Peak Velocity 146.3 cm/s TR Peak Gradient 8.6 mmHg TV Peak E Velocity 89.0 cm/s Right Atrial Pressure 3.0 mmHg Pulmonary Artery Systolic Pressu 11.6 mmHg PV Peak Velocity 84.0 cm/s RV Acceleration Time 0.2 s FINDINGS Left Ventricle Left ventricle is normal in size. LV systolic function is normal with EF of 55 to 60%. No regional wall motion abnormalities are seen. Diastolic function is normal Right Ventricle Normal in size and function Right Atrium Normal in size Left Atrium Normal in size Mitral Valve Structurally normal mitral valve. Trace mitral regurgitation Aortic Valve Structurally normal aortic valve. No significant stenosis or regurgitation seen. Tricuspid Valve Mild tricuspid regurgitation. Insufficient TR jet to calculate RVSP Pulmonic Valve Not well-visualized Pericardium Normal Aorta Normal in size IVC Appears to be normal CONCLUSIONS Normal with EF of 55 to 60%. Diastolic function is normal. Trace mitral regurgitation Mild tricuspid regurgitation No comparison studies are available Lenny Casanova MD (Electronically Signed) Final Date: 01 July 2022 10:19 S
== END 2022-07-01 07:04 | disposition home or self-care (01) ==
LOC: RAD 07:04
PROVIDERS: PCP Electrodiagnostic Medicine; Visit Provider Internal Medicine
DX: R06.02 Shortness of breath (principal); R00.0 Tachycardia, unspecified; I08.1 Rheumatic disorders of both mitral and tricuspid valves
CPT/HCPCS: 93306

== ENCOUNTER → 2022-11-18 16:05 | Outpatient (BNVA) | payer OTHER, SELFPAY | PROVIDERS: PCP Electrodiagnostic Medicine; Visit Provider Urology | DX: N30.20 Other chronic cystitis without hematuria (principal) | CPT/HCPCS: 81003 ==